=== PATIENT | female | born 1960 | race Caucasian/White ===

== ENCOUNTER 2018-04-07 20:09 | Emergency (ER) | payer BC, MEDICAID ==
[~2018-04-07] VITALS: Ht 172.7 cm; Wt 82.3 kg
[~2018-04-07 20:09] MED LIST: BAC10T PO; BACL10TA PO; CYCL-1 PO; DIAZ-351 PO; LANS15CA10 PO; NORCO10T PO
[2018-04-07] MEDS ORDERED: CYCL-1 PO (21:45)
[2018-04-07] MEDS ORDERED: triamcinolone acetonide 40mg/ml inj IM ONE (21:45)
[2018-04-07] MEDS ORDERED: ketorolac trometh inj. 60 MG/2 ML VIAL IM ONE (21:45)
[2018-04-07] MEDS ORDERED: acetaminophen 325mg tablet PO ONE (21:45)
[2018-04-07 22:47] VITALS: BP 124/65
== END 2018-04-07 22:55 | disposition home or self-care (01) ==
LOC: ER 20:10
DX: M54.5 Low back pain (principal); R50.9 Fever, unspecified; R11.2 Nausea with vomiting, unspecified; G89.29 Other chronic pain; F15.90 Other stimulant use, unspecified, uncomplicated; Z88.6 Allergy status to analgesic agent; Z79.899 Other long term (current) drug therapy; Z56.0 Unemployment, unspecified
CPT/HCPCS: 96372; 99284; J1885; J3301

== ENCOUNTER 2023-12-21 09:54 | Inpatient (IN) | payer BC, MEDICAID, MEDICARE ==
[~2023-12-21] VITALS: Ht 172.7 cm; Wt 90.9 kg
[~2023-12-21 09:54] MED LIST changes: -LANS15CA10 PO; +LANS15CA14 PO
[2023-12-21 11:01] LABS: BASOPHILS % (AUTO) 0.3 % (0-1); EOSINOPHILS # (AUTO) 0.3 X10'3 (0-0.9); EOSINOPHILS % (AUTO) 2.7 % (0-6); HEMATOCRIT 39.9 % (35.0-45.0); HEMOGLOBIN 13.3 g/dl (12.0-16.0); LYMPHOCYTES % (AUTO) 20.6 % (21-51); MEAN CORPUSCULAR HEMOGLOBIN 30.2 PG (27.0-31.0); MEAN CORPUSCULAR HGB CONC 33.4 g/dL (33.0-36.5); MEAN CORPUSCULAR VOLUME 90.3 FL (78-98); MEAN PLATELET VOLUME 9.7 FL (7.4-10.4); MONOCYTES # (AUTO) 0.5 X10'3 (0-0.9); MONOCYTES % (AUTO) 4.7 % (2-12); NEUTROPHILS # (AUTO) 7.1 X10'3 (1.8-7.7); NEUTROPHILS % (AUTO) 71.7 % (42-75); PLATELET COUNT 261 X10'3 (140-440); RED BLOOD COUNT 4.42 X10'6 (4.20-5.60); RED CELL DISTRIBUTION WIDTH 13.9 % (11.5-14.5); WHITE BLOOD COUNT 9.8 X10'3 (4.5-11.0)
[2023-12-21 11:11] LABS: ALANINE AMINOTRANSFERASE 38 U/L (12-78); ALBUMIN 3.3 G/DL (3.4-5.0); ALBUMIN/GLOBULIN RATIO 0.7 (1.1-1.5); ALKALINE PHOSPHATASE 101 IU/L (46-116); ANION GAP 11 (8-16); ASPARTATE AMINO TRANSFERASE 26 U/L (10-37); BILIRUBIN,TOTAL 0.6 MG/DL (0.1-1.0); BLOOD UREA NITROGEN 20 MG/DL (7-18); BUN/CREATININE RATIO 22.7 (10.0-20.0); CALCIUM 9.4 MG/DL (8.5-10.1); CHLORIDE 105 MMOL/L (99-107); CREATININE 0.88 MG/DL (0.40-0.90); GLUCOSE 144 MG/DL (70-104); POTASSIUM 4.1 MMOL/L (3.5-5.1); SODIUM 143 MMOL/L (135-145); TOTAL CARBON DIOXIDE 26.7 MMOL/L (24-32); TOTAL PROTEIN 7.8 G/DL (6.4-8.2); eCRCL 64 ML/MIN; eGFR 64 ML/MIN
[2023-12-21 11:12] LABS: PRO BRAIN NATRIURETIC PEPTIDE 1522 PG/ML (0-125)
[2023-12-21] MEDS: diltiazem 5mg/ml 5ml inj. IV STA (11:44)
[2023-12-21] MEDS: normal saline 1000ml 1,000 ML IV ONE (11:47)
[2023-12-21] MEDS: clopidogrel 300mg tablet PO ONE (11:52)
[2023-12-21 12:01] LABS: FREE T4 (FREE THYROXINE) 0.88 NG/DL (0.73-1.40); MAGNESIUM 1.9 MG/DL (1.5-2.4); THYROID STIMULATING HORMONE 1.59 ulU/ml (0.34-4.50)
[2023-12-21 12:42] LABS: ETHANOL < 10 MG/DL (<10)
[2023-12-21 13:00] LABS: URINE AMPHETAMINE SCREEN NEGATIVE (Neg); URINE BARBITUATE SCREEN NEGATIVE (Neg); URINE BENZODIAZEPINES SCREEN NEGATIVE (Neg); URINE CANNABINOID SCREEN NEGATIVE (Neg); URINE COCAINE SCREEN NEGATIVE (Neg); URINE METHADONE SCREEN NEGATIVE (Neg); URINE OPIATE SCREEN NEGATIVE (Neg); URINE PHENCYCLIDINE SCREEN NEGATIVE (Neg)
[2023-12-21 13:53] LABS: BILIRUBIN,URINE NEGATIVE (Neg); CLARITY,URINE CLEAR (Clear); COLOR,URINE YELLOW (Yellow); GLUCOSE, URINE NEGATIVE (Neg); KETONES,URINE NEGATIVE (Neg); LEUKOCYTE ESTERASE ,URINE NEGATIVE (Neg); NITRITES, URINE NEGATIVE (Neg); OCCULT BLOOD,URINE NEGATIVE (Neg); PH,URINE 7.5 (4.8-8.0); PROTEIN,URINE NEGATIVE (Neg); UROBILINOGEN,URINE 0.2 E.U/dL (0.2-1.0)
[2023-12-21] MEDS ORDERED: potassium Cl 20 mEq SR tablet PO PRN ×2 (14:05)
[2023-12-21] MEDS ORDERED: magnesium 4gm in 100ml NS 100 ML IV PRN (14:05)
[2023-12-21] MEDS ORDERED: diltiazem-D5W 125mg/125ml 125 ML IV SCH (14:05)
[2023-12-21] MEDS ORDERED: potassium Cl 40MEQ/1/2NS 520ml 520 ML IV PRN (14:05)
[2023-12-21] MEDS ORDERED: magnesium Cl slow-release 64mg tablet PO PRN (14:05)
[2023-12-21] MEDS ORDERED: mag hydrox/Alum hydrox/simeth 30ml oral suspension PO PRN (14:05)
[2023-12-21] MEDS ORDERED: ondansetron/PF 4mg/2ml inj IV PRN (14:05)
[2023-12-21] MEDS ORDERED: magnesium 2GM in 50ml NS 50 ML IV PRN (14:05)
[2023-12-21] MEDS ORDERED: magnesium hydroxide 30ml (MOM) UD suspension PO PRN (14:05)
[2023-12-21 14:06] LABS: UA COLLECTION TYPE NON-SPECIFIED
[2023-12-21] MEDS ORDERED: diltiazem-NS 100mg/100ml 125 ML IV SCH (14:17)
[2023-12-21 15:25] LABS: D-DIMER 2.49 MG/L FEU (0-0.50)
[2023-12-21] MEDS: diltiazem-NS 100mg/100ml 100 ML IV SCH (15:40)
[2023-12-21] MEDS ORDERED: iohexol 350MG/ML 100ml bottle IV ONE (15:48)
[2023-12-21] MEDS: K and/or MAG REPLACEMENT MC SCH (19:13)
[2023-12-21] MEDS: apixaban 5mg tablet PO SCH (21:03)
[2023-12-21] MEDS: nicotine 7mg patch - 24hr TD SCH (21:04)
[2023-12-21] MEDS: LORazepam 0.5 MG tablet PO PRN (21:57)
[2023-12-22] MEDS: temazepam 15mg capsule PO ONE (00:22)
[2023-12-22 03:04] LABS: ALBUMIN 3.5 G/DL (3.4-5.0); ANION GAP 11 (8-16); BLOOD UREA NITROGEN 18 MG/DL (7-18); BUN/CREATININE RATIO 20.2 (10.0-20.0); CALCIUM 8.7 MG/DL (8.5-10.1); CHLORIDE 103 MMOL/L (99-107); CREATININE 0.89 MG/DL (0.40-0.90); GLUCOSE 108 MG/DL (70-104); POTASSIUM 4.4 MMOL/L (3.5-5.1); SODIUM 141 MMOL/L (135-145); TOTAL CARBON DIOXIDE 27.3 MMOL/L (24-32); eCRCL 64 ML/MIN; eGFR 64 ML/MIN
[2023-12-22 03:15] LABS: BASOPHILS # (AUTO) 0.1 X10'3 (0-0.2); BASOPHILS % (AUTO) 0.4 % (0-1); EOSINOPHILS # (AUTO) 0.4 X10'3 (0-0.9); EOSINOPHILS % (AUTO) 3.1 % (0-6); HEMATOCRIT 41.8 % (35.0-45.0); HEMOGLOBIN 13.8 g/dl (12.0-16.0); LYMPHOCYTES # (AUTO) 2.4 X10'3 (1.1-4.8); LYMPHOCYTES % (AUTO) 21.2 % (21-51); MEAN CORPUSCULAR HEMOGLOBIN 29.6 PG (27.0-31.0); MEAN CORPUSCULAR HGB CONC 32.9 g/dL (33.0-36.5); MEAN CORPUSCULAR VOLUME 90.1 FL (78-98); MEAN PLATELET VOLUME 9.4 FL (7.4-10.4); MONOCYTES # (AUTO) 0.7 X10'3 (0-0.9); MONOCYTES % (AUTO) 5.8 % (2-12); NEUTROPHILS % (AUTO) 69.5 % (42-75); PLATELET COUNT 268 X10'3 (140-440); RED BLOOD COUNT 4.65 X10'6 (4.20-5.60); RED CELL DISTRIBUTION WIDTH 13.8 % (11.5-14.5); WHITE BLOOD COUNT 11.5 X10'3 (4.5-11.0)
[2023-12-22] MEDS: acetaminophen 325mg tablet PO PRN (06:51)
[2023-12-22] MEDS ORDERED: nicotine 7mg patch - 24hr TD SCH (08:00)
[2023-12-22] MEDS ORDERED: metoprolol tartrate 1mg/ml inj IV PRN (14:00)
[2023-12-22] MEDS ORDERED: nitroGLYCERIN 0.4mg SUBLingual tab SL PRN (14:00)
[2023-12-22] MEDS ORDERED: aminophylline 250mg/10ml inj. IV PRN (14:00)
[2023-12-22 19:40] VITALS: BP 100/56; PULSE 101; RESP 18; TEMP 97.3; O2SAT 97
[2023-12-22] MEDS: diltiazem 30mg tablet PO SCH (20:00)
[2023-12-22 22:00] VITALS: BP 102/60; PULSE 97; TEMP 98.6; O2SAT 97
[2023-12-22] MEDS: ringers solution, lacted 1,000 ML IV ONE (22:02)
[2023-12-22] MEDS: Melatonin 3mg tablet PO SCH (22:14)
[2023-12-22 23:00] VITALS: BP 140/79; PULSE 102
[2023-12-23] VITALS (12 sets, daily range): BP systolic 98–126; BP diastolic 63–86; PULSE 95–135; RESP 16–28; TEMP 97.5–98.2; O2SAT 95–98
[2023-12-23 06:41] LABS: BASOPHILS % (AUTO) 0.4 % (0-1); EOSINOPHILS # (AUTO) 0.3 X10'3 (0-0.9); EOSINOPHILS % (AUTO) 2.6 % (0-6); HEMOGLOBIN 14.2 g/dl (12.0-16.0); LYMPHOCYTES # (AUTO) 1.6 X10'3 (1.1-4.8); LYMPHOCYTES % (AUTO) 14.5 % (21-51); MEAN CORPUSCULAR HGB CONC 33.1 g/dL (33.0-36.5); MEAN CORPUSCULAR VOLUME 90.5 FL (78-98); MEAN PLATELET VOLUME 9.3 FL (7.4-10.4); MONOCYTES # (AUTO) 0.8 X10'3 (0-0.9); NEUTROPHILS # (AUTO) 8.2 X10'3 (1.8-7.7); NEUTROPHILS % (AUTO) 75.5 % (42-75); PLATELET COUNT 264 X10'3 (140-440); RED BLOOD COUNT 4.75 X10'6 (4.20-5.60); WHITE BLOOD COUNT 10.9 X10'3 (4.5-11.0)
[2023-12-23 06:47] LABS: ALBUMIN 3.2 G/DL (3.4-5.0); ANION GAP 10 (8-16); BLOOD UREA NITROGEN 15 MG/DL (7-18); BUN/CREATININE RATIO 17.6 (10.0-20.0); CALCIUM 8.8 MG/DL (8.5-10.1); CHLORIDE 105 MMOL/L (99-107); CREATININE 0.85 MG/DL (0.40-0.90); GLUCOSE 118 MG/DL (70-104); MAGNESIUM 1.8 MG/DL (1.5-2.4); POTASSIUM 4.4 MMOL/L (3.5-5.1); SODIUM 141 MMOL/L (135-145); TOTAL CARBON DIOXIDE 26.2 MMOL/L (24-32); eCRCL 67 ML/MIN; eGFR 67 ML/MIN
[2023-12-23] MEDS: regadenoson 0.4mg/5ml syringe IV PRN (11:13)
[2023-12-23] MEDS ORDERED: SPIR25TA PO (14:55)
[2023-12-23] MEDS ORDERED: AMI200T PO (14:55)
[2023-12-23] MEDS ORDERED: APIX5TAB3 PO (14:55)
[2023-12-23] MEDS ORDERED: METO-395 PO (14:55)
[2023-12-23] MEDS ORDERED: LOSA50TA64 PO (14:55)
[2023-12-23] MEDS: metoprolol succinate 25mg (24-HOUR) SR. Tablet PO SCH (15:02)
[2023-12-23 15:26] LABS: CHOL/HDL RATIO 1.5 (0.00-4.99); CHOLESTEROL 204 MG/DL (0-200); HDL CHOLESTEROL 137 MG/DL (35-60); LDL CHOLESTEROL 31 MG/DL (50-100); TRIGLYCERIDES 76 MG/DL (20-135)
[2023-12-23] MEDS: metoprolol tartrate 1mg/ml inj IV ONE (15:59)
[2023-12-23] MEDS: amiodarone 200mg tablet PO SCH (16:49)
[2023-12-23] MEDS ORDERED: amiodarone 200mg tablet PO SCH (20:00)
[2023-12-23] MEDS ORDERED: Melatonin 3mg tablet PO SCH (21:00)
[2023-12-24] MEDS ORDERED: losartan 25mg tablet PO SCH (08:00)
[2023-12-24] MEDS ORDERED: spironolactone 25 MG tablet PO SCH (08:30)
== END 2023-12-23 17:20 | disposition home or self-care (01) | DRG 308 ==
LOC: ER 09:55 → UNDOADMIN 14:05 → ED HOLD 14:05 → PCU 3S 12-22 19:30 → ED HOLD 12-22 19:30
PROVIDERS: ADMIT Family Medicine; ATTEND Family Medicine
PROC: B32T1ZZ Computerized Tomography (CT Scan) of Left Pulmonary Artery using Low Osmolar Contrast (ICD-10-PCS; 2023-12-21)
PROC: B3201ZZ Computerized Tomography (CT Scan) of Thoracic Aorta using Low Osmolar Contrast (ICD-10-PCS; 2023-12-21)
PROC: B32S1ZZ Computerized Tomography (CT Scan) of Right Pulmonary Artery using Low Osmolar Contrast (ICD-10-PCS; 2023-12-21)
PROC: 4A02XM4 Measurement of Cardiac Total Activity, External Approach (ICD-10-PCS; principal; 2023-12-22)
PROC: 3E073KZ Introduction of Other Diagnostic Substance into Coronary Artery, Percutaneous Approach (ICD-10-PCS; 2023-12-22)
DX: I48.91 Unspecified atrial fibrillation (principal); I50.21 Acute systolic (congestive) heart failure; G89.29 Other chronic pain; M54.9 Dorsalgia, unspecified; F17.210 Nicotine dependence, cigarettes, uncomplicated; F15.10 Other stimulant abuse, uncomplicated; Z88.6 Allergy status to analgesic agent; Z79.899 Other long term (current) drug therapy; Z80.3 Family history of malignant neoplasm of breast; Z87.11 Personal history of peptic ulcer disease
CPT/HCPCS: 36415; 71045; 71275; 78452; 80048; 80053; 80061; 80305; 80320; 81003; 83605; 83735; 83880; 84145; 84439; 84443; 84484; 85025; 85379; 87040; 87081; 93017; 93306; 99285; A9500; G0378; J2785; J3490; J7030; J7120; Q9967

== ENCOUNTER 2024-02-11 11:08 | Day surgery (SDC) | payer BC ==
[2024-02-11] VITALS (15 sets, daily range): BP systolic 118–147; BP diastolic 54–103; PULSE 101–131; RESP 15–23; TEMP 98.3; O2SAT 92–96
[~2024-02-11] VITALS: Ht 172.7 cm; Wt 87.7 kg
[~2024-02-11 11:08] MED LIST changes: +AMI200T PO; +APIX5TAB3 PO; -BAC10T PO; -BACL10TA PO; -CYCL-1 PO; -DIAZ-351 PO; -LANS15CA14 PO; +LOSA50TA64 PO; +METO-395 PO; -NORCO10T PO; +SPIR25TA PO
[2024-02-11] MEDS ORDERED: fentaNYL/PF 50MCG/1 ML 2ML syringe IV ONE ×2 (11:40→11:50)
[2024-02-11] MEDS ORDERED: normal saline 1000ml 1,000 ML IV SCH ×2 (11:40→11:50)
[2024-02-11] MEDS ORDERED: MIDAZolam 1mg/ml 10ml vial IV ONE ×2 (11:40→11:50)
[2024-02-11] MEDS ORDERED: METO50TA7 PO (12:03)
[2024-02-11] MEDS ORDERED: AMIO200T27 PO (12:03)
[2024-02-11] MEDS ORDERED: LOSA50TA64 PO (12:03)
[2024-02-11] MEDS ORDERED: SPIR25TA5 PO (12:03)
[2024-02-11] MEDS ORDERED: APIX5TAB3 PO (12:03)
[2024-02-11 12:22] LABS: BASOPHILS # (AUTO) 0.1 X10'3 (0-0.2); BASOPHILS % (AUTO) 0.7 % (0-1); EOSINOPHILS # (AUTO) 0.6 X10'3 (0-0.9); EOSINOPHILS % (AUTO) 5.1 % (0-6); HEMATOCRIT 42.6 % (35.0-45.0); HEMOGLOBIN 14.1 g/dl (12.0-16.0); LYMPHOCYTES # (AUTO) 2.2 X10'3 (1.1-4.8); LYMPHOCYTES % (AUTO) 19.3 % (21-51); MEAN CORPUSCULAR HEMOGLOBIN 30.2 PG (27.0-31.0); MEAN CORPUSCULAR HGB CONC 33.1 g/dL (33.0-36.5); MEAN CORPUSCULAR VOLUME 91.2 FL (78-98); MEAN PLATELET VOLUME 8.9 FL (7.4-10.4); MONOCYTES # (AUTO) 0.8 X10'3 (0-0.9); MONOCYTES % (AUTO) 6.6 % (2-12); NEUTROPHILS # (AUTO) 7.9 X10'3 (1.8-7.7); NEUTROPHILS % (AUTO) 68.3 % (42-75); PLATELET COUNT 262 X10'3 (140-440); RED BLOOD COUNT 4.67 X10'6 (4.20-5.60); RED CELL DISTRIBUTION WIDTH 15.4 % (11.5-14.5); WHITE BLOOD COUNT 11.5 X10'3 (4.5-11.0)
[2024-02-11 12:30] LABS: ALBUMIN 3.2 G/DL (3.4-5.0); ANION GAP 9 (8-16); BLOOD UREA NITROGEN 19 MG/DL (7-18); BUN/CREATININE RATIO 19.4 (10.0-20.0); CALCIUM 9.1 MG/DL (8.5-10.1); CHLORIDE 106 MMOL/L (99-107); CREATININE 0.98 MG/DL (0.40-0.90); GLUCOSE 107 MG/DL (70-104); POTASSIUM 4.4 MMOL/L (3.5-5.1); SODIUM 139 MMOL/L (135-145); TOTAL CARBON DIOXIDE 23.6 MMOL/L (24-32); eCRCL 58 ML/MIN; eGFR 57 ML/MIN
[2024-02-11 12:33] LABS: INR 1.1 INR; PROTHROMBIN TIME 11.4 SECONDS (9.0-12.0)
[2024-02-11] MEDS ORDERED: FLU VACC QS2023-24(6MOS UP)/PF 60 MCG/0.5 ML SYRINGE IM ONE (20:10)
== END 2024-02-11 14:10 | disposition home or self-care (01) ==
LOC: SSTAY O 11:08
PROVIDERS: ATTEND Student in an Organized Health Care Education/Training Program
DX: I48.91 Unspecified atrial fibrillation (principal); J44.9 Chronic obstructive pulmonary disease, unspecified; I50.9 Heart failure, unspecified; E78.00 Pure hypercholesterolemia, unspecified; Z79.01 Long term (current) use of anticoagulants; Z79.899 Other long term (current) drug therapy; Z88.6 Allergy status to analgesic agent
CPT/HCPCS: 36415; 80048; 85025; 85610; 92960; J7030; 90686; A4620

== ENCOUNTER 2024-10-14 13:38 | Inpatient (IN) | payer BC, OTHER ==
[~2024-10-14] VITALS: Ht 172.7 cm; Wt 95.0 kg
[~2024-10-14 13:38] MED LIST changes: -AMI200T PO; +AMIO200T27 PO; -METO-395 PO; +METO50TA7 PO; -SPIR25TA PO; +SPIR25TA5 PO
[2024-10-14 14:29] LABS: ALANINE AMINOTRANSFERASE 19 U/L (12-78); ALBUMIN 2.6 G/DL (3.4-5.0); ALBUMIN/GLOBULIN RATIO 0.5 (1.1-1.5); ALKALINE PHOSPHATASE 119 IU/L (46-116); ANION GAP 10 (8-16); ASPARTATE AMINO TRANSFERASE 27 U/L (10-37); BILIRUBIN,TOTAL 0.6 MG/DL (0.1-1.0); BLOOD UREA NITROGEN 13 MG/DL (7-18); BUN/CREATININE RATIO 11.9 (10.0-20.0); CHLORIDE 100 MMOL/L (99-107); CREATININE 1.09 MG/DL (0.40-0.90); GLUCOSE 153 MG/DL (70-104); POTASSIUM 3.6 MMOL/L (3.5-5.1); SODIUM 135 MMOL/L (135-145); eCRCL 51 ML/MIN; eGFR 50 ML/MIN
[2024-10-14 14:31] LABS: PRO BRAIN NATRIURETIC PEPTIDE 304 PG/ML (0-125)
[2024-10-14 14:37] LABS: BASOPHILS # (AUTO) 0.1 X10'3 (0-0.2); BASOPHILS % (AUTO) 0.8 % (0-1); EOSINOPHILS # (AUTO) 0.1 X10'3 (0-0.9); EOSINOPHILS % (AUTO) 0.8 % (0-6); HEMATOCRIT 40.3 % (35.0-45.0); HEMOGLOBIN 13.7 g/dl (12.0-16.0); LYMPHOCYTES # (AUTO) 1.2 X10'3 (1.1-4.8); MEAN CORPUSCULAR HEMOGLOBIN 31.8 PG (27.0-31.0); MEAN CORPUSCULAR HGB CONC 33.8 g/dL (33.0-36.5); MEAN PLATELET VOLUME 8.8 FL (7.4-10.4); MONOCYTES % (AUTO) 6.3 % (2-12); NEUTROPHILS # (AUTO) 12.9 X10'3 (1.8-7.7); NEUTROPHILS % (AUTO) 84.1 % (42-75); PLATELET COUNT 364 X10'3 (140-440); RED BLOOD COUNT 4.29 X10'6 (4.20-5.60); RED CELL DISTRIBUTION WIDTH 13.8 % (11.5-14.5); WHITE BLOOD COUNT 15.4 X10'3 (4.5-11.0)
[2024-10-14] MEDS: methylPREDNISolone sod succ 125mg/2ml vial IV ONE (15:00)
[2024-10-14] MEDS: CefTRIAXone 2gm/D5W 50ml BAG 50 ML IV ONE (15:00)
[2024-10-14] MEDS: ipratropium/albuterol 3ml nebule NEB ONE (15:24)
[2024-10-14 15:27] VITALS: PULSE 86; RESP 24; O2SAT 94
[2024-10-14 15:33] VITALS: PULSE 86; RESP 24; O2SAT 99
[2024-10-14] MEDS: azithromycin/NS 500mg/250ml 250 ML IV SCH (15:34)
[2024-10-14 16:01] LABS: BILIRUBIN,URINE NEGATIVE (Neg); CLARITY,URINE CLEAR (Clear); COLOR,URINE YELLOW (Yellow); GLUCOSE, URINE >=1000 mg/dl (Neg); KETONES,URINE NEGATIVE (Neg); LEUKOCYTE ESTERASE ,URINE NEGATIVE (Neg); NITRITES, URINE NEGATIVE (Neg); OCCULT BLOOD,URINE NEGATIVE (Neg); PROTEIN,URINE NEGATIVE (Neg)
[2024-10-14 16:03] LABS: UA COLLECTION TYPE VOIDED
[2024-10-14 16:10] LABS: SQUAMOUS EPITHELIAL CELL,UR FEW /LPF (FEW)
[2024-10-14 16:11] LABS: BACTERIA,URINE NONE SEEN /HPF (Neg); RBC,URINE NONE SEEN /HPF (0-2); WBC,URINE NONE SEEN /HPF (0-4); YEAST FEW /HPF (NEGATIVE)
[2024-10-14] MEDS ORDERED: DAPA10TA PO (16:55)
[2024-10-14] MEDS ORDERED: METO-395 PO (16:55)
[2024-10-14] MEDS ORDERED: bisacodyl 10mg suppository rectal RC PRN (17:25)
[2024-10-14] MEDS ORDERED: diphenhydrAMINE 50 mg/ml inj IV PRN (17:25)
[2024-10-14] MEDS ORDERED: diphenhydrAMINE 25mg capsule PO PRN (17:25)
[2024-10-14] MEDS ORDERED: ondansetron 4mg rapidly disintigrating tab PO PRN (17:25)
[2024-10-14] MEDS ORDERED: acetaminophen 325mg tablet PO PRN (17:25)
[2024-10-14] MEDS ORDERED: morphine 2 MG/ML inj. syringe IV PRN ×2 (17:25)
[2024-10-14] MEDS ORDERED: mag hydrox/Alum hydrox/simeth 30ml oral suspension PO PRN (17:25)
[2024-10-14] MEDS ORDERED: ipratropium/albuterol 3ml nebule NEB PRN (17:25)
[2024-10-14] MEDS ORDERED: acetaminophen 650mg rectal suppository RC PRN (17:25)
[2024-10-14] MEDS ORDERED: magnesium hydroxide 30ml (MOM) UD suspension PO PRN (17:25)
[2024-10-14] MEDS ORDERED: HYDROcodone/acetaminophen 10/325mg tab PO PRN (17:25)
[2024-10-14] MEDS ORDERED: ondansetron/PF 4mg/2ml inj IV PRN (17:25)
[2024-10-14 17:56] LABS: MAGNESIUM 1.6 MG/DL (1.5-2.4)
[2024-10-14 17:58] LABS: APTT 30 SECONDS (22-32); D-DIMER 1.83 MG/L FEU (0-0.50); INR 1.1 INR; PROTHROMBIN TIME 11.4 SECONDS (9.0-12.0)
[2024-10-14 18:12] LABS: HEMOGLOBIN A1C 5.7 % (4.5-6.2)
[2024-10-14] MEDS: normal saline 1000ml 1,000 ML IV SCH (19:36)
[2024-10-14 19:42] VITALS: PULSE 77; RESP 22
[2024-10-14] MEDS: docusate sod 100mg capsule PO SCH (19:59)
[2024-10-14] MEDS: heparin, porcine 5000 units/ml vial SQ SCH (19:59)
[2024-10-14] MEDS: methylPREDNISolone sod succ 125mg/2ml vial IV SCH (20:13)
[2024-10-14] MEDS: acetaminophen 325mg tablet PO PRN (20:14)
[2024-10-15] VITALS (12 sets, daily range): BP systolic 112–133; BP diastolic 50–81; PULSE 76–105; RESP 12–24; TEMP 97.4–97.8; O2SAT 91–96
[2024-10-15 07:14] LABS: BASOPHILS % (AUTO) 0.1 % (0-1); EOSINOPHILS % (AUTO) 0 % (0-6); HEMATOCRIT 39.7 % (35.0-45.0); HEMOGLOBIN 13.2 g/dl (12.0-16.0); LYMPHOCYTES # (AUTO) 0.8 X10'3 (1.1-4.8); LYMPHOCYTES % (AUTO) 4.2 % (21-51); MEAN CORPUSCULAR HEMOGLOBIN 31.4 PG (27.0-31.0); MEAN CORPUSCULAR HGB CONC 33.3 g/dL (33.0-36.5); MEAN CORPUSCULAR VOLUME 94.3 FL (78-98); MONOCYTES # (AUTO) 0.6 X10'3 (0-0.9); MONOCYTES % (AUTO) 3.2 % (2-12); NEUTROPHILS # (AUTO) 18.4 X10'3 (1.8-7.7); NEUTROPHILS % (AUTO) 92.5 % (42-75); PLATELET COUNT 343 X10'3 (140-440); RED BLOOD COUNT 4.21 X10'6 (4.20-5.60); RED CELL DISTRIBUTION WIDTH 13.7 % (11.5-14.5); WHITE BLOOD COUNT 19.9 X10'3 (4.5-11.0)
[2024-10-15 07:24] LABS: ALANINE AMINOTRANSFERASE 22 U/L (12-78); ALBUMIN 2.5 G/DL (3.4-5.0); ALBUMIN/GLOBULIN RATIO 0.4 (1.1-1.5); ALKALINE PHOSPHATASE 116 IU/L (46-116); ANION GAP 10 (8-16); ASPARTATE AMINO TRANSFERASE 20 U/L (10-37); BILIRUBIN,TOTAL 0.4 MG/DL (0.1-1.0); BLOOD UREA NITROGEN 21 MG/DL (7-18); CALCIUM 9.2 MG/DL (8.5-10.1); CHLORIDE 102 MMOL/L (99-107); CHOL/HDL RATIO 1.4 (0.00-4.99); CHOLESTEROL 167 MG/DL (0-200); CREATININE 1.05 MG/DL (0.40-0.90); GLUCOSE 186 MG/DL (70-104); HDL CHOLESTEROL 123 MG/DL (35-60); LDL CHOLESTEROL 25 MG/DL (50-100); SODIUM 138 MMOL/L (135-145); TOTAL CARBON DIOXIDE 26.3 MMOL/L (24-32); TOTAL PROTEIN 8.1 G/DL (6.4-8.2); TRIGLYCERIDES 36 MG/DL (20-135); eCRCL 53 ML/MIN; eGFR 52 ML/MIN
[2024-10-15] MEDS ORDERED: azithromycin/NS 500mg/250ml 250 ML IV SCH (08:00)
[2024-10-15] MEDS: pantoprazole 40mg Tablet.DR PO SCH (08:20)
[2024-10-15] MEDS: azithromycin/NS 500mg/250ml 250 ML IV SCH (14:32)
[2024-10-15] MEDS: CefTRIAXone/D5W-Rocephin 1gm 50 ML IV SCH (14:33)
[2024-10-15] MEDS: ipratropium/albuterol 3ml nebule NEB SCH (15:00)
[2024-10-15] MEDS: temazepam 15mg capsule PO PRN (19:28)
[2024-10-15] MEDS: apixaban 5mg tablet PO SCH (19:29)
[2024-10-15] MEDS: amiodarone 200mg tablet PO SCH (19:54)
[2024-10-15] MEDS ORDERED: aminophylline 250mg/10ml inj. IV PRN (22:00)
[2024-10-15] MEDS ORDERED: regadenoson 0.4mg/5ml syringe IV PRN (22:00)
[2024-10-15] MEDS ORDERED: metoprolol tartrate 1mg/ml inj IV PRN (22:00)
[2024-10-15] MEDS ORDERED: nitroGLYCERIN 0.4mg SUBLingual tab SL PRN (22:00)
[2024-10-16] VITALS (16 sets, daily range): BP systolic 98–121; BP diastolic 54–69; PULSE 75–97; RESP 15–23; TEMP 97.1–97.9; O2SAT 92–97
[2024-10-16 07:53] LABS: BASOPHILS % (AUTO) 0.1 % (0-1); EOSINOPHILS % (AUTO) 0 % (0-6); HEMOGLOBIN 12.3 g/dl (12.0-16.0); LYMPHOCYTES # (AUTO) 0.5 X10'3 (1.1-4.8); LYMPHOCYTES % (AUTO) 2.3 % (21-51); MEAN CORPUSCULAR HEMOGLOBIN 31.3 PG (27.0-31.0); MEAN CORPUSCULAR HGB CONC 33.3 g/dL (33.0-36.5); MEAN CORPUSCULAR VOLUME 94.3 FL (78-98); MEAN PLATELET VOLUME 8.9 FL (7.4-10.4); MONOCYTES # (AUTO) 0.9 X10'3 (0-0.9); MONOCYTES % (AUTO) 4.5 % (2-12); NEUTROPHILS # (AUTO) 18.9 X10'3 (1.8-7.7); NEUTROPHILS % (AUTO) 93.1 % (42-75); PLATELET COUNT 351 X10'3 (140-440); RED BLOOD COUNT 3.92 X10'6 (4.20-5.60); RED CELL DISTRIBUTION WIDTH 13.7 % (11.5-14.5); WHITE BLOOD COUNT 20.3 X10'3 (4.5-11.0)
[2024-10-16 08:09] LABS: ALANINE AMINOTRANSFERASE 19 U/L (12-78); ALBUMIN 2.4 G/DL (3.4-5.0); ALBUMIN/GLOBULIN RATIO 0.5 (1.1-1.5); ALKALINE PHOSPHATASE 96 IU/L (46-116); ANION GAP 9 (8-16); ASPARTATE AMINO TRANSFERASE 16 U/L (10-37); BILIRUBIN,TOTAL 0.2 MG/DL (0.1-1.0); BLOOD UREA NITROGEN 27 MG/DL (7-18); BUN/CREATININE RATIO 23.1 (10.0-20.0); CALCIUM 8.6 MG/DL (8.5-10.1); CHLORIDE 102 MMOL/L (99-107); CREATININE 1.17 MG/DL (0.40-0.90); GLUCOSE 290 MG/DL (70-104); POTASSIUM 3.8 MMOL/L (3.5-5.1); SODIUM 137 MMOL/L (135-145); TOTAL CARBON DIOXIDE 26.2 MMOL/L (24-32); TOTAL PROTEIN 7.3 G/DL (6.4-8.2); eCRCL 48 ML/MIN; eGFR 46 ML/MIN
[2024-10-16] MEDS: losartan 50mg tablet PO SCH (08:16)
[2024-10-16] MEDS: DAPAGLIFLOZIN 10MG TABLET PO SCH (08:17)
[2024-10-16] MEDS: spironolactone 25 MG tablet PO SCH (08:18)
[2024-10-16] MEDS: metoprolol succinate 25mg (24-HOUR) SR. Tablet PO SCH (08:19)
[2024-10-16] MEDS: FLU VACC TS2024-25(6MOS UP)/PF 45 MCG/0.5 ML SYRINGE IMVAC ONE (08:26)
[2024-10-16] MEDS: pneumococcal 23-VAL P-sac vacc 25 mcg/0.5ml vial IMVAC ONE (08:26)
[2024-10-16] MEDS: guaiFENesin ER 600mg tablet PO SCH (10:53)
[2024-10-16] MEDS: HYDROcodone/acetaminophen 5mg/325mg tablet PO PRN (15:46)
[2024-10-17] VITALS (18 sets, daily range): BP systolic 105–154; BP diastolic 62–79; PULSE 62–93; RESP 16–20; TEMP 97.1–97.6; O2SAT 92–97
[2024-10-17 07:30] LABS: BASOPHILS % (AUTO) 0.2 % (0-1); EOSINOPHILS % (AUTO) 0 % (0-6); HEMATOCRIT 37.7 % (35.0-45.0); HEMOGLOBIN 12.6 g/dl (12.0-16.0); LYMPHOCYTES # (AUTO) 0.6 X10'3 (1.1-4.8); LYMPHOCYTES % (AUTO) 3.3 % (21-51); MEAN CORPUSCULAR HEMOGLOBIN 31.6 PG (27.0-31.0); MEAN CORPUSCULAR HGB CONC 33.4 g/dL (33.0-36.5); MEAN CORPUSCULAR VOLUME 94.6 FL (78-98); MEAN PLATELET VOLUME 8.9 FL (7.4-10.4); MONOCYTES % (AUTO) 5.6 % (2-12); NEUTROPHILS % (AUTO) 90.9 % (42-75); PLATELET COUNT 347 X10'3 (140-440); RED BLOOD COUNT 3.99 X10'6 (4.20-5.60); RED CELL DISTRIBUTION WIDTH 13.6 % (11.5-14.5); WHITE BLOOD COUNT 17.7 X10'3 (4.5-11.0)
[2024-10-17 07:54] LABS: ALANINE AMINOTRANSFERASE 25 U/L (12-78); ALBUMIN 2.5 G/DL (3.4-5.0); ALBUMIN/GLOBULIN RATIO 0.5 (1.1-1.5); ALKALINE PHOSPHATASE 96 IU/L (46-116); ANION GAP 7 (8-16); ASPARTATE AMINO TRANSFERASE 19 U/L (10-37); BILIRUBIN,TOTAL 0.3 MG/DL (0.1-1.0); BLOOD UREA NITROGEN 23 MG/DL (7-18); BUN/CREATININE RATIO 22.5 (10.0-20.0); CALCIUM 8.7 MG/DL (8.5-10.1); CHLORIDE 103 MMOL/L (99-107); CREATININE 1.02 MG/DL (0.40-0.90); GLUCOSE 179 MG/DL (70-104); POTASSIUM 4.2 MMOL/L (3.5-5.1); SODIUM 138 MMOL/L (135-145); TOTAL PROTEIN 7.5 G/DL (6.4-8.2); eCRCL 55 ML/MIN; eGFR 54 ML/MIN
[2024-10-17] MEDS: regadenoson 0.4mg/5ml syringe IV ONE (09:29)
[2024-10-17] MEDS: guaiFENesin 200mg/20mg codeine phos 10ml UD oral syrup PO PRN (13:56)
[2024-10-17] MEDS ORDERED: AMOX-580 PO (14:13)
== END 2024-10-17 16:00 | disposition home or self-care (01) | DRG 189 ==
LOC: ER 13:39 → ED HOLD 17:31 → PCU 3S 10-15 01:00
PROVIDERS: ADMIT Family Medicine; ATTEND Family Medicine
PROC: CB121ZZ Planar Nuclear Medicine Imaging of Lungs and Bronchi using Technetium 99m (Tc-99m) (ICD-10-PCS; 2024-10-16)
PROC: 4A02XM4 Measurement of Cardiac Total Activity, External Approach (ICD-10-PCS; principal; 2024-10-17)
PROC: 3E033HZ Introduction of Radioactive Substance into Peripheral Vein, Percutaneous Approach (ICD-10-PCS; 2024-10-17)
DX: J96.01 Acute respiratory failure with hypoxia (principal); I50.23 Acute on chronic systolic (congestive) heart failure; I13.0 Hypertensive heart and chronic kidney disease with heart failure and stage 1 through stage 4 chronic kidney disease, or unspecified chronic kidney disease; J44.1 Chronic obstructive pulmonary disease with (acute) exacerbation; N17.9 Acute kidney failure, unspecified; Z20.822 Contact with and (suspected) exposure to COVID-19; M54.9 Dorsalgia, unspecified; F15.90 Other stimulant use, unspecified, uncomplicated; E88.09 Other disorders of plasma-protein metabolism, not elsewhere classified; E78.5 Hyperlipidemia, unspecified; G89.4 Chronic pain syndrome; I48.91 Unspecified atrial fibrillation; Z88.6 Allergy status to analgesic agent; Z79.01 Long term (current) use of anticoagulants; Z79.899 Other long term (current) drug therapy; Z87.11 Personal history of peptic ulcer disease; Z87.891 Personal history of nicotine dependence
CPT/HCPCS: 36415; 71045; 71250; 78452; 78582; 80053; 80061; 81001; 83036; 83605; 83735; 83880; 84100; 84145; 84484; 85025; 85379; 85610; 85730; 87040; 87081; 87502; 87503; 87811; 90686; 90732; 93005; 93017; 93306; 94640; 94760; 96365; 96375; 99285; A4615; A6258; A9500; A9539; A9540; G0378; J0456; J0696; J1644; J2785; J2919; J7030; J7040

== ENCOUNTER 2025-03-24 11:06 | Emergency (ER) | payer BC, OTHER ==
[~2025-03-24] VITALS: Ht 172.7 cm; Wt 97.8 kg
[~2025-03-24 11:06] MED LIST changes: +DAPA10TA PO; +METO-395 PO; -METO50TA7 PO
[2025-03-24 11:11] VITALS: TEMP 98.7
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
[2025-03-24] MEDS: LIDOcaine 1% W/epiNEPHrine 1:100,000 20ml vial SQ ONE (13:33)
[2025-03-24 13:46] VITALS: BP 134/74; PULSE 84; RESP 15; O2SAT 98
== END 2025-03-24 13:46 | disposition home or self-care (01) ==
LOC: ER 11:06
DX: M54.50 Low back pain, unspecified (principal); M54.2 Cervicalgia; R51.9 Headache, unspecified; F15.90 Other stimulant use, unspecified, uncomplicated; Z88.6 Allergy status to analgesic agent
CPT/HCPCS: 70450; 72125; 99284; A6449